=== PATIENT | female | born 1985 | race Caucasian/White ===

== ENCOUNTER 2021-01-16 08:14 | Outpatient (CLI) | payer OTHER, SELFPAY ==
--- NOTE | ~2021-01-16 | US_ITS ---
EXAMINATION: US venous doppler LE EXAM DATE: 01/16/2021 09:05 INDICATION: O22.30 - Deep phlebothrombosis in , unspecified ... Bruising of left leg. TECHNIQUE: Multiple grayscale, color flow and Doppler images of the lower extremity deep venous syste ms bilaterally were obtained and reviewed. There is no prior study for comparison. FINDINGS: Right side: The right common femoral, femoral and profunda veins demonstrate normal color flow, respi ratory variation, augmentation and compressibility. Compressibility, color flow confirmed within the right popliteal, posterior tibial, peroneal, and greater saphenous veins. Left side: The left common femoral, femoral and profunda veins demonstrate normal color flow, respira tory variation, augmentation and compressibility. Compressibility, color flow confirmed within the l eft popliteal, posterior tibial, peroneal, and greater saphenous veins. Scanning above knee left leg area of concern demonstrates a focal heterogeneous hypoechoic region wit hin subcutaneous fat measuring about 8 x 5 mm in size, differential diagnosis includes focal superfic ial thrombophlebitis, sebaceous cyst, hematoma seroma. No hypervascularity surrounding this or within . IMPRESSION: 1. No lower extremity deep venous thrombosis bilaterally. 2. Small focal left leg above knee subcutaneous region, could be superficial thrombophlebitis, sebac eous cyst, hematoma/seroma. Reviewed, dictated and finalized at location B. T FARMER IMPRESSION: 1. No lower extremity deep venous thrombosis bilaterally. 2. Small focal left leg above knee subcutaneous region, could be superficial t hrombophlebitis, sebaceous cyst, hematoma/seroma.
[2021-04-02 14:52] VITALS: BP 139/76; PULSE 117
== END 2021-01-16 08:15 | disposition home or self-care (01) ==
LOC: ANHIMG 08:16
PROVIDERS: PCP Obstetrics & Gynecology; Visit Provider Obstetrics & Gynecology
DX: O22.30 Deep phlebothrombosis in pregnancy, unspecified trimester (principal); Z3A.00 Weeks of gestation of pregnancy not specified
CPT/HCPCS: 93970

== ENCOUNTER 2021-03-14 08:00 | Outpatient (RCR) | payer OTHER, SELFPAY ==
[2021-03-14 08:00] VITALS: BMI 33.2
[2021-04-10 11:11] VITALS: BP 149/84; PULSE 101
[2021-04-10 11:16] VITALS: BP 148/78; PULSE 107
[2021-04-10 11:31] VITALS: BP 147/67; PULSE 105
[2021-04-10 12:19] VITALS: BP 144/60; PULSE 101
== END 2021-05-10 14:47 | disposition home or self-care (01) ==
LOC: ANHDMC 08:00
PROVIDERS: PCP Obstetrics & Gynecology; Visit Provider Obstetrics & Gynecology
DX: O24.419 Gestational diabetes mellitus in pregnancy, unspecified control (principal); Z3A.00 Weeks of gestation of pregnancy not specified; Z71.89 Other specified counseling; Z71.3 Dietary counseling and surveillance
CPT/HCPCS: 97802; G0108

== ENCOUNTER 2021-03-21 12:56 | Outpatient (CLI) | payer OTHER, SELFPAY ==
[2021-03-21] VITALS (11 sets, daily range): BP systolic 113–136; BP diastolic 38–68; PULSE 93–127; BMI 33.8
[2021-03-21 13:38] LABS: Glucose Point of Care 130 mg/dl (65-105)
[2021-03-21 13:42] LABS: Basophils Percent Auto 0.3 % (0.2-1.2); Eosinophils Absolute Auto 0.1 K/mm3 (0-0.3); Eosinophils Percent Auto 1.5 % (0-4.4); Hematocrit 31.9 % (37.0-47.0); Immature Granulocyte Absolute 0.08 K/mm3 (0.00-0.031); Immature Granulocyte Percent A 1.2 % (0-0.5); Lymphocytes Absolute Auto 1.56 K/mm3 (0.9-3.2); Lymphocytes Percent Auto 22.8 % (18.3-44.2); Mean Corpuscular HGB Conc 31.3 g/dl (32-36); Mean Corpuscular Volume 89.4 fl (80-100); Mean Platelet Volume 9.3 fl (7.4-10.4); Monocytes Absolute Auto 0.6 K/mm3 (0.1-0.6); Monocytes Percent Auto 9.1 % (2.6-8.5); Neutrophils Absolute Auto 4.5 K/mm3 (1.3-6.7); Neutrophils Percent Auto 65.1 % (45.5-73.1); Platelet Count Result 416 k/mm3 (150-375); Red Blood Count 3.57 M/mm3 (4.2-5.4); White Blood Count 6.8 K/mm3 (4.5-10.0)
[2021-03-21 13:56] LABS: Alanine Aminotransferase 13 U/L (4-35); Albumin Level 3.4 g/dL (3.5-5.1); Alkaline Phosphatase 106 U/L (38-126); Anion Gap 6 mmol/L (8-16); Aspartate Amino Transferase 18 U/L (14-36); Bilirubin,Total 0.2 mg/dL (0.2-1.3); Blood Urea Nitrogen 7 mg/dL (7-17); Calcium 8.9 mg/dL (8.4-10.2); Carbon Dioxide 22 mmol/L (22-30); Chloride 106 mmol/L (98-107); Estimated Glomerular Filt Rate > 60; Glucose 139 mg/dL (65-110); Potassium 3.7 mmol/L (3.4-5.0); Sodium 134 mmol/L (137-145); Uric Acid 3.8 mg/dL (2.5-7.5)
[2021-03-21 14:13] LABS: Add Urine Microscopic? YES; Appearance Urine Clear (Clear); Bilirubin Urine Negative (Negative); Blood Urine Negative (Negative); Color Urine Straw (Yellow); Glucose Urine UA Negative (Negative); Ketones Urine 1+ mg/dL (Negative); Leukocyte Esterase Ur Negative LEU/UL (Negative); Nitrate Urine Negative (Negative); Protein Urine Negative (Negative); RBC Urine 0-2 /hpf (0-2); Specific Grav Ur 1.005 (1.001-1.035); Squamous Epithelial Cell Urine Rare /hpf (Few); Urobilinogen Urine Negative mg/dL (<2.0); WBC Urine 0-3 /hpf
[2021-03-21 14:19] LABS: Creatinine Urine 34.8 mg/dL; Total Protein Urine Random 16 mg/dL; Ur Ttl Prot Creatinine Ratio 0.46 mg/mg (0-0.20)
== END 2021-03-21 15:20 | disposition home or self-care (01) ==
LOC: ANHOBOP 13:01 → ANHLDR 13:04
PROVIDERS: Visit Provider Obstetrics & Gynecology
DX: O13.9 Gestational [pregnancy-induced] hypertension without significant proteinuria, unspecified trimester (principal); Z3A.00 Weeks of gestation of pregnancy not specified
CPT/HCPCS: 36415; 59025; 80053; 81001; 82570; 82948; 84156; 84550; 85025; 99199

== ENCOUNTER 2021-03-22 16:45 | Outpatient (NON) | payer OTHER, SELFPAY ==
[2021-03-22 16:53] VITALS: BMI 34.3
[2021-03-22 18:47] LABS: Collection Time Urine 24 HOURS
[2021-03-22 18:56] LABS: Specific Gravity Ur 1.015
[2021-03-22 19:15] LABS: Patient Weight 212 Lbs
[2021-03-22 19:24] LABS: Creatinine Urine 59.1 mg/dL; Total Protein Urine Random 17 mg/dL
[2021-03-22 19:49] LABS: Creatinine Clearance Urine 208.5 ml/min (75-125); Total Protein Urine 24 Hr 510 mg/24hr (28-141); Total Volume 24 Hour Urine 3000 ml
== END 2021-03-22 16:46 | disposition home or self-care (01) ==
LOC: ANHOBOP 16:48
PROVIDERS: Visit Provider Obstetrics & Gynecology
DX: O13.9 Gestational [pregnancy-induced] hypertension without significant proteinuria, unspecified trimester (principal); Z3A.00 Weeks of gestation of pregnancy not specified
CPT/HCPCS: 81050; 82575; 84156

== ENCOUNTER 2021-04-02 14:34 | Outpatient (CLI) | payer OTHER, SELFPAY ==
--- NOTE | ~2021-04-02 | US_ITS ---
EXAMINATION: US OB limited EXAM DATE: 04/02/2021 15:44 INDICATION: REY . 3rd trimester. TECHNIQUE: Pelvic obstetrical transabdominal sonogram was performed by a technologist. There are mu ltiple grayscale and Doppler images available for interpretation. Comparison is made to prior examina tion from 03/29/2021. FINDINGS: There is a single fetus identified in vertex presentation with a heart rate of 132 beats pe r minute. The placenta is located in the anterior position. There is no sonographic evidence of retr oplacental hemorrhage identified. AMNIOTIC FLUID INDEX Quadrant 1: 1.9 cm Quadrant 2: 2.5 cm Quadrant 3: 2.6 cm Quadrant 4: 0.0 cm Amniotic fluid index: 7.0 cm. (The 5th -- 95th percentile range is 8.3-24.5). IMPRESSION: 1. Single fetus in vertex presentation with heart rate 132 beats per minute. 2. Oligohydramnios, REY 7.0 cm. Reviewed, dictated and finalized at location G. LOGY NURSE NAVIGATOR
[2021-04-02 15:08] LABS: Basophils Percent Auto 0.3 % (0.2-1.2); Eosinophils Percent Auto 0.5 % (0-4.4); Hematocrit 32.7 % (37.0-47.0); Hemoglobin 10.4 g/dL (12.0-15.0); Immature Granulocyte Absolute 0.08 K/mm3 (0.00-0.031); Lymphocytes Absolute Auto 1.57 K/mm3 (0.9-3.2); Lymphocytes Percent Auto 20.3 % (18.3-44.2); Mean Corpuscular HGB Conc 31.8 g/dl (32-36); Mean Corpuscular Hemoglobin 28.6 pg (26-34); Mean Corpuscular Volume 89.8 fl (80-100); Mean Platelet Volume 9.5 fl (7.4-10.4); Monocytes Absolute Auto 0.8 K/mm3 (0.1-0.6); Monocytes Percent Auto 9.7 % (2.6-8.5); Neutrophils Absolute Auto 5.3 K/mm3 (1.3-6.7); Neutrophils Percent Auto 68.2 % (45.5-73.1); Platelet Count Result 360 k/mm3 (150-375); Red Blood Count 3.64 M/mm3 (4.2-5.4); Red Cell Distribution Width 13.8 % (11.5-14.5); White Blood Count 7.8 K/mm3 (4.5-10.0)
[2021-04-02 15:17] LABS: Add Urine Microscopic? YES; Appearance Urine Clear (Clear); Bacteria Urine Trace /hpf; Bilirubin Urine Negative (Negative); Blood Urine Negative (Negative); Color Urine Yellow (Yellow); Glucose Urine UA Negative (Negative); Ketones Urine 1+ mg/dL (Negative); Leukocyte Esterase Ur Negative LEU/UL (NEGATIVE); Mucus Urine Rare /lpf; Nitrate Urine Negative (Negative); Protein Urine Negative (Negative); RBC Urine 0-2 /hpf (0-2); Specific Grav Ur 1.012 (1.001-1.035); Squamous Epithelial Cell Urine Few /hpf (Few); Urobilinogen Urine Negative mg/dL (<2.0); WBC Urine 0-3 /hpf (0-3)
[2021-04-02 15:21] LABS: Alanine Aminotransferase 15 U/L (4-35); Albumin Level 3.7 g/dL (3.5-5.1); Alkaline Phosphatase 132 U/L (38-126); Anion Gap 7 mmol/L (8-16); Aspartate Amino Transferase 21 U/L (14-36); Bilirubin,Total 0.3 mg/dL (0.2-1.3); Blood Urea Nitrogen 10 mg/dL (7-17); Calcium 8.8 mg/dL (8.4-10.2); Carbon Dioxide 20 mmol/L (22-30); Chloride 105 mmol/L (98-107); Estimated Glomerular Filt Rate > 60; Glucose 126 mg/dL (65-110); Potassium 3.5 mmol/L (3.4-5.0); Sodium 132 mmol/L (137-145); Uric Acid 3.4 mg/dL (2.5-7.5)
[2021-04-02 15:25] LABS: Creatinine Urine 51.6 mg/dL; Total Protein Urine Random 19 mg/dL; Ur Ttl Prot Creatinine Ratio 0.37 mg/mg (0-0.20)
--- NOTE | 2021-04-02 16:07 | PC.NURSE ---
1604- SPoke to Dr. peters, labs and BPs reviewed. orders to discharge to home with a 24 hour urine. Diabetic educatior coming to see patient before disharge.
[2021-04-02 16:08] VITALS: BP 139/76; PULSE 110
== END 2021-04-02 14:35 | disposition home or self-care (01) ==
LOC: ANHOBOP 14:41
PROVIDERS: Visit Provider Obstetrics & Gynecology
DX: O41.00X0 Oligohydramnios, unspecified trimester, not applicable or unspecified (principal); Z3A.00 Weeks of gestation of pregnancy not specified
CPT/HCPCS: 36415; 59025; 76815; 80053; 81001; 82570; 84156; 84550; 85025; 87086

== ENCOUNTER 2021-04-06 10:45 | Outpatient (CLI) | payer OTHER, SELFPAY ==
[2021-04-06 10:53] VITALS: BMI 33.7
[2021-04-06 11:29] LABS: Collection Time Urine 24 HOURS
[2021-04-06 11:38] LABS: Patient Weight 209 Lbs; Potassium 24 Hour Urine 18.7 mmol/24 (25-125)
[2021-04-06 11:59] LABS: Creatinine Clearance Urine 191.1 ml/min (75-125); Total Volume 24 Hour Urine 2750 ml
[2021-04-06 12:12] LABS: Specific Gravity Ur 1.013
[2021-04-06 12:14] LABS: Total Volume 24 Hour Urine 2750 ml
[2021-04-06 12:20] LABS: Total Protein Urine 24 Hr 357 mg/24hr (28-141); Total Protein Urine Random 13 mg/dL
== END 2021-04-06 10:46 | disposition home or self-care (01) ==
LOC: ANHOBOP 10:47
PROVIDERS: Visit Provider Obstetrics & Gynecology
DX: O16.3 Unspecified maternal hypertension, third trimester (principal); Z3A.33 33 weeks gestation of pregnancy
CPT/HCPCS: 59025; 76815; 81050; 82575; 84133; 84156

== ENCOUNTER 2021-04-14 11:25 | Outpatient (RCR) | payer OTHER, SELFPAY ==
[2021-04-13] MEDS: BETAMETHASONE SOD PHOS/ACETATE 30 MG/5 ML VIAL 12 MG IM (11:33)
[2021-04-14] MEDS: BETAMETHASONE SOD PHOS/ACETATE 30 MG/5 ML VIAL 12 MG IM (11:33)
== END 2021-07-08 08:49 | disposition home or self-care (01) ==
LOC: ANHOBOP 11:25
PROVIDERS: Visit Provider Obstetrics & Gynecology
DX: O36.8930 Maternal care for other specified fetal problems, third trimester, not applicable or unspecified (principal); Z3A.00 Weeks of gestation of pregnancy not specified
CPT/HCPCS: 96372; J0702

== ENCOUNTER 2021-04-26 12:38 | Outpatient (RCR) | payer OTHER, SELFPAY ==
[2021-03-29 11:22] VITALS: BP 135/60; PULSE 110
[2021-04-06 11:18] VITALS: BP 132/71
--- NOTE | 2021-04-06 11:59 | PC.NURSE ---
1138- SPoke with Dr. Arellano, reviewed BP's REY and NST. Orders to monitor for 1 hour.
[2021-04-06 12:54] VITALS: BP 130/50; PULSE 93
[2021-04-10 11:47] VITALS: BP 149/84; PULSE 87
--- NOTE | 2021-04-10 12:30 | PC.NURSE ---
REY 9.6. Pt sent home with precautions. Scheduled again for sat morning.
[2021-04-13 11:07] LABS: Basophils Percent Auto 0.3 % (0.2-1.2); Eosinophils Absolute Auto 0.1 K/mm3 (0-0.3); Eosinophils Percent Auto 1.8 % (0-4.4); Hematocrit 35.5 % (37.0-47.0); Hemoglobin 11.2 g/dL (12.0-15.0); Immature Granulocyte Absolute 0.06 K/mm3 (0.00-0.031); Immature Granulocyte Percent A 0.8 % (0-0.5); Lymphocytes Absolute Auto 1.63 K/mm3 (0.9-3.2); Mean Corpuscular HGB Conc 31.5 g/dl (32-36); Mean Corpuscular Hemoglobin 27.8 pg (26-34); Mean Corpuscular Volume 88.1 fl (80-100); Mean Platelet Volume 9.6 fl (7.4-10.4); Monocytes Absolute Auto 0.7 K/mm3 (0.1-0.6); Monocytes Percent Auto 9.3 % (2.6-8.5); Neutrophils Absolute Auto 4.9 K/mm3 (1.3-6.7); Neutrophils Percent Auto 65.8 % (45.5-73.1); Platelet Count Result 446 k/mm3 (150-375); Red Blood Count 4.03 M/mm3 (4.2-5.4); Red Cell Distribution Width 13.6 % (11.5-14.5); White Blood Count 7.4 K/mm3 (4.5-10.0)
[2021-04-13 11:14] LABS: Total Protein Urine Random 10 mg/dL
[2021-04-13 11:16] LABS: Creatinine Urine 55.9 mg/dL; Ur Ttl Prot Creatinine Ratio 0.18 mg/mg (0-0.20)
[2021-04-13 11:18] LABS: Alanine Aminotransferase 16 U/L (4-35); Albumin Level 3.4 g/dL (3.5-5.1); Alkaline Phosphatase 133 U/L (38-126); Anion Gap 5 mmol/L (8-16); Aspartate Amino Transferase 20 U/L (14-36); Bilirubin,Total 0.2 mg/dL (0.2-1.3); Blood Urea Nitrogen 11 mg/dL (7-17); Calcium 8.9 mg/dL (8.4-10.2); Carbon Dioxide 19 mmol/L (22-30); Chloride 109 mmol/L (98-107); Estimated Glomerular Filt Rate > 60; Glucose 130 mg/dL (65-110); Potassium 3.6 mmol/L (3.4-5.0); Sodium 133 mmol/L (137-145); Uric Acid 3.8 mg/dL (2.5-7.5)
[2021-04-13 12:07] VITALS: BP 121/74; PULSE 96
[2021-04-17 11:40] VITALS: BP 132/69; PULSE 94
[2021-04-20 10:55] LABS: Basophils Percent Auto 0.3 % (0.2-1.2); Eosinophils Absolute Auto 0.2 K/mm3 (0-0.3); Eosinophils Percent Auto 2.2 % (0-4.4); Hematocrit 35.1 % (37.0-47.0); Immature Granulocyte Absolute 0.07 K/mm3 (0.00-0.031); Immature Granulocyte Percent A 0.9 % (0-0.5); Lymphocytes Absolute Auto 1.59 K/mm3 (0.9-3.2); Lymphocytes Percent Auto 20.7 % (18.3-44.2); Mean Corpuscular HGB Conc 31.3 g/dl (32-36); Mean Corpuscular Hemoglobin 27.8 pg (26-34); Mean Corpuscular Volume 88.6 fl (80-100); Mean Platelet Volume 9.9 fl (7.4-10.4); Monocytes Absolute Auto 0.7 K/mm3 (0.1-0.6); Monocytes Percent Auto 9.1 % (2.6-8.5); Neutrophils Absolute Auto 5.1 K/mm3 (1.3-6.7); Neutrophils Percent Auto 66.8 % (45.5-73.1); Platelet Count Result 391 k/mm3 (150-375); Red Blood Count 3.96 M/mm3 (4.2-5.4); Red Cell Distribution Width 13.7 % (11.5-14.5); White Blood Count 7.7 K/mm3 (4.5-10.0)
[2021-04-20 11:06] LABS: Alanine Aminotransferase 17 U/L (4-35); Albumin Level 3.4 g/dL (3.5-5.1); Alkaline Phosphatase 126 U/L (38-126); Anion Gap 5 mmol/L (8-16); Aspartate Amino Transferase 20 U/L (14-36); Bilirubin,Total 0.2 mg/dL (0.2-1.3); Blood Urea Nitrogen 12 mg/dL (7-17); Calcium 9.1 mg/dL (8.4-10.2); Carbon Dioxide 21 mmol/L (22-30); Chloride 107 mmol/L (98-107); Estimated Glomerular Filt Rate > 60; Glucose 108 mg/dL (65-110); Potassium 3.8 mmol/L (3.4-5.0); Sodium 133 mmol/L (137-145); Uric Acid 3.5 mg/dL (2.5-7.5)
[2021-04-20 11:43] VITALS: BP 131/64; PULSE 98
[2021-04-23 11:30] VITALS: BP 130/74; PULSE 91
--- NOTE | ~2021-04-26 | US_ITS ---
EXAMINATION: US OB limited DATE: 04/17/2021 11:42 INDICATION: Gestational diabetes and preeclampsia during third trimester TECHNIQUE: Real-time ultrasound of the pelvis was performed. The interpreting radiologist was not pre sent for the study. COMPARISON: 04/13/2021 FINDINGS: There is a single living fetus in vertex presentation. The placenta is anterior. card iac activity and movement are noted. heart rate is 138 beats per minute (bpm). The amniot ic fluid index is 8.5 cm which is normal (normal range: 7.9 cm to 24.9 cm) . IMPRESSION: 1. Single living fetus in vertex presentation. 2. Normal amniotic fluid index. Reviewed, dictated and finalized at location A. AND SALARY ADMINISTRATOR
--- NOTE | ~2021-04-26 | US_ITS ---
US OB limited 04/06/2021 11:28 Indication: Essential diabetes and hypertension. Oligohydramnios. Procedure: High-resolution Limited obstetrical ultrasound Comparison: Ultrasound dated 04/02/2021 Findings: There is a single living intrauterine in vertex presentation. heart rate is 148 BPM. Placenta is anterior without previa. Amniotic fluid index is normal measuring 10.3 cm. Impression: 1: Single living intrauterine in vertex presentation. 2: Normal REY measures 10.3 cm. Reviewed, dictated and finalized at location A. ON AND TIME STUDY TEACHER Impression: 1: Single living intrauterine in vertex presentation. 2: Normal REY measures 10.3 cm.
--- NOTE | ~2021-04-26 | US_ITS ---
EXAMINATION: US OB limited DATE: 04/10/2021 12:02 INDICATION: Gestational hypertension and diabetes. TECHNIQUE: Real-time ultrasound of the pelvis was performed. The interpreting radiologist was not pre sent for the study. COMPARISON: None. FINDINGS: There is a single living fetus in vertex presentation. The placenta is anterior. heart rate is 142 beats per minute (bpm). The amniotic fluid index is 9.6 cm, which is normal (5th%-95%: 8.1-24.8 cm at 34 weeks estimated gestational age). IMPRESSION: 1. Single living fetus in vertex presentation with heart rate of 142 bpm. 2. Normal amniotic fluid index of 9.6 cm. Reviewed, dictated and finalized at location A. ISSARY ASSISTANT IMPRESSION: 1. Single living fetus in vertex presentation with heart rate of 142 bpm . 2. Normal amniotic fluid index of 9.6 cm.
--- NOTE | ~2021-04-26 | US_ITS ---
EXAMINATION: US OB limited DATE: 04/20/2021 11:10 INDICATION: -induced hypertension during third trimester TECHNIQUE: Real-time ultrasound of the pelvis was performed. The interpreting radiologist was not pre sent for the study. COMPARISON: None. FINDINGS: There is a single living fetus in vertex presentation. The placenta is anterior. heart rate is 142 beats per minute (bpm). The amniotic fluid index is 8.3 cm, which is normal (5th%-95%: 7.9-24.9 cm at 35 weeks estimated gestational age). IMPRESSION: 1. Single living fetus in vertex presentation with heart rate of 142 bpm. 2. Normal amniotic fluid index of 8.3 cm. Reviewed, dictated and finalized at location A. TECH IMPRESSION: 1. Single living fetus in vertex presentation with heart rate of 142 bpm . 2. Normal amniotic fluid index of 8.3 cm.
--- NOTE | ~2021-04-26 | US_ITS ---
EXAMINATION: US OB limited w BPP DATE: 04/26/2021 13:39 INDICATION: Maternal gestational diabetes and preeclampsia TECHNIQUE: Real-time pelvic ultrasound was performed. The interpreting radiologist was not present fo r the study. COMPARISON: None. FINDINGS: There is a single living fetus in vertex presentation. The placenta is anterior. heart rate is 123 beats per minute (bpm). Normal amniotic fluid index of 11.3 cm (5th%-95%: 7.7-24.9 cm at 36 week s estimated gestational age) Biophysical profile performed by the technologist: breathing (30 sec sustained breathing in 30 minutes): 2 out of 2 movement (3 gross body movements in 30 minutes): 2 out of 2 tone (one episode of vaupykm-xaxgiydom-pevvdpo limb movement): 2 out of 2 Amniotic fluid pocket (2 cm): 2 out of 2 Total score: 8 out of 8 IMPRESSION: 1. Single living fetus in vertex presentation with heart rate of 123 bpm. 2. Biophysical profile 8 out of 8. 3. Normal amniotic fluid index of 11.3 cm. Reviewed, dictated and finalized at location A. T SPRAY INSPECTOR
--- NOTE | ~2021-04-26 | US_ITS ---
EXAMINATION: US OB follow up w BPP DATE: 04/23/2021 11:02 INDICATION: Evaluate amniotic fluid index, estimated weight and biophysical profile TECHNIQUE: Real-time ultrasound of the pelvis was performed. The interpreting radiologist was not pre sent for the study. COMPARISON: Comparison to multiple prior studies sequentially, with oldest reviewed study dated 06/2021. . FINDINGS: There is a single living fetus in vertex presentation. The placenta is anterior. cardiac activ ity and movement are noted. heart rate is 154 beats per minute (bpm). The amniotic fluid index is 8.5 cm, which is within normal range (7.7-24.9 cm).. The following biometric data were obtained: BPD: 91 cm corresponds to gestational age 37 weeks 0 day(s). Head circumference: 327 cm corresponds to gestational age 37 weeks 1 day(s). Abdominal circumference: 338 cm corresponds to gestational age 37 weeks 5 day(s). Femur length: 70 cm corresponds to gestational age 36 weeks 0 day(s). Head circumference to abdominal circumference ratio: 0.97, within normal limits. Estimated weight: 3131 g plus or minus 470 g, 78.6 percentile. Biophysical profile performed by the technologist: breathing (30 sec sustained breathing in 30 minutes): 2 out of 2 movement (3 gross body movements in 30 minutes: 2 out of 2 tone (one episode of obgvbxd-dztnkdkjw-pmrraln limb movement): 2 out of 2 Amniotic fluid pocket (2 cm): 2 out of 2 Total score: 8 out of 8 IMPRESSION: 1. Single living fetus in vertex presentation with heart rate of 154 bpm. 2. Normal placenta. 3. Biophysical profile 8 out of 8. 4. Gestational age by ultrasound of 37 weeks 0 day(s) with ultrasound estimated date of delivery (TALON ) of 05/14/2021. Please correlate with clinical information or other ultrasounds for most accurate TALON . Reviewed, dictated and finalized at location B. MARKER IMPRESSION: 1. Single living fetus in vertex presentation with heart rate of 154 bpm. 2. Normal placenta. 3. Biophysical profile 8 out of 8. 4. Gestational age by ultrasound of 37 weeks 0 day(s) with ultrasound estimated date of delivery (TALON) of 05/14/2021. Please correlate with clinical informatio n or other ultrasounds for most accurate TALON.
--- NOTE | ~2021-04-26 | US_ITS ---
EXAMINATION: US OB limited EXAM DATE: 03/29/2021 11:14 INDICATION: REY GDM. 3rd trimester. TECHNIQUE: Pelvic obstetrical transabdominal sonogram was performed by a technologist. There are mu ltiple grayscale and Doppler images available for interpretation. There are no earlier studies of th is gestation for comparison. FINDINGS: There is a single fetus identified in vertex presentation with a heart rate of 148 beats pe r minute. The placenta is located in the anterior position. There is no sonographic evidence of retr oplacental hemorrhage identified. The amniotic fluid index is 10.5 centimeters, which is normal. IMPRESSION: 1. Single fetus in vertex presentation with heart rate 148 beats per minute. 2. Normal REY 10.5 cm. Reviewed, dictated and finalized at location A. IANCE SALES ASSOCIATE
--- NOTE | ~2021-04-26 | US_ITS ---
EXAMINATION: US OB limited DATE: 04/13/2021 11:54 INDICATION: Gestational diabetes and preeclampsia during third trimester TECHNIQUE: Real-time ultrasound of the pelvis was performed. The interpreting radiologist was not pre sent for the study. COMPARISON: 04/10/2021 FINDINGS: There is a single living fetus in vertex presentation. The placenta is anterior. card iac activity and movement are noted. heart rate is 130 beats per minute (bpm). The amniot ic fluid index is 7.5 cm which is low (normal range: 8.1 cm to 24.8 cm) . IMPRESSION: 1. Single living fetus in vertex presentation. 2. Oligohydramnios. Reviewed, dictated and finalized at location A. FLOORPERSON
[2021-04-26 13:42] VITALS: BP 128/59; PULSE 72
== END 2021-06-27 23:59 | disposition home or self-care (01) ==
LOC: ANHOBOP 12:38
PROVIDERS: Visit Provider Obstetrics & Gynecology
DX: O24.419 Gestational diabetes mellitus in pregnancy, unspecified control (principal); Z3A.32 32 weeks gestation of pregnancy; R03.0 Elevated blood-pressure reading, without diagnosis of hypertension; Z3A.33 33 weeks gestation of pregnancy; O41.03X0 Oligohydramnios, third trimester, not applicable or unspecified; O14.93 Unspecified pre-eclampsia, third trimester; Z3A.34 34 weeks gestation of pregnancy; Z3A.35 35 weeks gestation of pregnancy; Z3A.36 36 weeks gestation of pregnancy
CPT/HCPCS: 36415; 59025; 76815; 76816; 76819; 80053; 82570; 84156; 84550; 85025; 96372; J0702

== ENCOUNTER 2021-04-30 05:10 | Inpatient (IN) | payer OTHER, SELFPAY ==
[2021-04-30] VITALS (104 sets, daily range): BP systolic 101–180; BP diastolic 45–113; PULSE 65–104; RESP 16; TEMP 36.7–37.7; O2SAT 99–100
[2021-04-30 06:09] LABS: Basophils Percent Auto 0.3 % (0.2-1.2); Eosinophils Absolute Auto 0.2 K/mm3 (0-0.3); Eosinophils Percent Auto 3.5 % (0-4.4); Hematocrit 36.2 % (37.0-47.0); Hemoglobin 11.4 g/dL (12.0-15.0); Immature Granulocyte Absolute 0.04 K/mm3 (0.00-0.031); Immature Granulocyte Percent A 0.6 % (0-0.5); Lymphocytes Absolute Auto 2.05 K/mm3 (0.9-3.2); Lymphocytes Percent Auto 32.6 % (18.3-44.2); Mean Corpuscular HGB Conc 31.5 g/dl (32-36); Mean Corpuscular Hemoglobin 27.8 pg (26-34); Mean Corpuscular Volume 88.3 fl (80-100); Mean Platelet Volume 10.1 fl (7.4-10.4); Monocytes Absolute Auto 0.6 K/mm3 (0.1-0.6); Monocytes Percent Auto 9.6 % (2.6-8.5); Neutrophils Absolute Auto 3.4 K/mm3 (1.3-6.7); Neutrophils Percent Auto 53.4 % (45.5-73.1); Platelet Count Result 366 k/mm3 (150-375); White Blood Count 6.3 K/mm3 (4.5-10.0)
[2021-04-30] MEDS: LACTATED RINGERS 1,000 ML 125 ML IV CONT ×2 (06:11→13:15)
[2021-04-30] MEDS: AMPICILLIN 2 GM/NS 100 ML 2 GM/100 ML BAG IVPB (06:11)
[2021-04-30 06:17] LABS: Alanine Aminotransferase 13 U/L (4-35); Albumin Level 3.5 g/dL (3.5-5.1); Alkaline Phosphatase 147 U/L (38-126); Anion Gap 8 mmol/L (8-16); Aspartate Amino Transferase 19 U/L (14-36); Bilirubin,Total 0.2 mg/dL (0.2-1.3); Blood Urea Nitrogen 13 mg/dL (7-17); Calcium 8.8 mg/dL (8.4-10.2); Carbon Dioxide 20 mmol/L (22-30); Chloride 108 mmol/L (98-107); Estimated Glomerular Filt Rate > 60; Glucose 116 mg/dL (65-110); Potassium 3.8 mmol/L (3.4-5.0); Sodium 136 mmol/L (137-145)
[2021-04-30 06:24] LABS: Uric Acid 4.4 mg/dL (2.5-7.5)
[2021-04-30] MEDS: OXYTOCIN 30 UNITS/NS 500 ML 30 UNITS/500 ML BAG IV CONT (06:44)
--- NOTE | 2021-04-30 08:47 | WPDANESEPP ---
Anes - Eval Pre Procedure Procedure: labor epidural Date/Time: 04/30/21 08:47 Preop Diagnosis: labor pain Pre Op Diagnosis: IOL Patient Data Age: 35 Gender: F Height: Weight: Last Vital Signs Pulse 78 04/30/21 08:46 BP 117/70 04/30/21 08:46 Allergies Allergy/AdvReac Type Severity Reaction Status Date / Time No Known Allergies Allergy Verified 04/23/21 08:37 Home Medications Medication Instructions Recorded Confirmed Type prenat.vits,letitia,crr-tbgk-giwcp 1 tablet PO DAILY 09/26/20 04/30/21 History ferrous sulfate 325 mg PO DAILY 03/21/21 04/30/21 History insulin syringes (disposable) 1 mL #500 ea 04/05/21 04/25/21 Rx insulin NPH isoph U-100 human 10 unit SUBCUT QHS 04/13/21 04/30/21 History [Novolin N NPH U-100 Insulin] Laboratory Tests 04/30/21 04/30/21 04/30/21 05:51 05:51 05:51 WBC 6.3 K/mm3 K/mm3 (4.5-10.0) RBC 4.10 M/mm3 L M/mm3 (4.2-5.4) Hgb 11.4 g/dL L g/dL (12.0-15.0) Hct 36.2 % L % (37.0-47.0) MCV 88.3 fl fl (80-100) MCH 27.8 pg pg (26-34) MCHC 31.5 g/dl L g/dl (32-36) RDW 14.0 % % (11.5-14.5) Plt Count 366 k/mm3 k/mm3 (150-375) MPV 10.1 fl fl (7.4-10.4) Immature Gran % (Auto) 0.6 % H % (0-0.5) Neut % (Auto) 53.4 % % (45.5-73.1) Lymph % (Auto) 32.6 % % (18.3-44.2) [place] % (Auto) 9.6 % H % (2.6-8.5) Eos % (Auto) 3.5 % % (0-4.4) Baso % (Auto) 0.3 % % (0.2-1.2) Lymph # (Auto) 2.05 K/mm3 K/mm3 (0.9-3.2) [place] # (Auto) 0.6 K/mm3 K/mm3 (0.1-0.6) Eos # (Auto) 0.2 K/mm3 K/mm3 (0-0.3) Baso # (Auto) 0.0 K/mm3 K/mm3 (0.0-0.1) Abs Immat Gran (auto) 0.04 K/mm3 H K/mm3 (0.00-0.031) Absolute Neuts (auto) 3.4 K/mm3 K/mm3 (1.3-6.7) Absolute Nucleated RBC 0.0 K/mm3 K/mm3 (0.0-0.012) Nucleated RBC % 0.0 % % (0.0-0.2) Sodium Potassium Chloride Carbon Dioxide Anion Gap BUN Creatinine Estim Creat Clear Calc Estimated GFR Glucose Uric Acid Calcium Total Bilirubin AST ALT Alkaline Phosphatase Total Protein Albumin RPR Pending Blood Type O Positive Antibody Screen Negative 04/30/21 04/30/21 05:51 05:51 WBC RBC Hgb Hct MCV MCH MCHC RDW Plt Count MPV Immature Gran % (Auto) Neut % (Auto) Lymph % (Auto) [place] % (Auto) Eos % (Auto) Baso % (Auto) Lymph # (Auto) [place] # (Auto) Eos # (Auto) Baso # (Auto) Abs Immat Gran (auto) Absolute Neuts (auto) Absolute Nucleated RBC Nucleated RBC % Sodium 136 mmol/L L mmol/L (137-145) Potassium 3.8 mmol/L mmol/L (3.4-5.0) Chloride 108 mmol/L H mmol/L (98-107) Carbon Dioxide 20 mmol/L L mmol/L (22-30) Anion Gap 8 mmol/L mmol/L (8-16) BUN 13 mg/dL mg/dL (7-17) Creatinine 0.50 mg/dL L mg/dL (0.7-1.0) Estim Creat Clear Calc Not Reportable Estimated GFR > 60 (59 - ) Glucose 116 mg/dL H mg/dL (65-110) Uric Acid 4.4 mg/dL mg/dL Cancelled (2.5-7.5) Calcium 8.8 mg/dL mg/dL (8.4-10.2) Total Bilirubin 0.2 mg/dL mg/dL (0.2-1.3) AST 19 U/L U/L (14-36) ALT 13 U/L U/L (4-35) Alkaline Phosphatase 147 U/L H U/L (38-126) Total Protein 7.0 g/dL g/dL (6.3-8.2) Albumin 3.5 g/dL g/dL (3.5-5.1) RPR Blood Type Antibody Screen Patient hx anesthe
[2021-04-30] MEDS: AMPICILLIN 1 GM/NS 50 ML 1 GM/50 ML BAG IVPB ×2 (09:55→13:49)
[2021-04-30 10:06] LABS: Glucose Point of Care 110 mg/dl (65-105)
[2021-04-30 12:01] LABS: Glucose Point of Care 87 mg/dl (65-105)
[2021-04-30 14:10] LABS: Glucose Point of Care 81 mg/dl (65-105)
[2021-04-30 16:22] LABS: Glucose Point of Care 76 mg/dl (65-105)
--- NOTE | 2021-04-30 16:34 | PM.IMHP ---
H&P: HPI History of Present Illness Date/Time: 04/30/21 16:34 She is here for [facility] for pre-eclampsia. She has been recommended for [facility] and discussed risk of prolonging and risk benefit of induction.Patient at 37 weeks by LMP 08/13/20 EDC 05/20/21 consistent with first trimester ultrasound. PNC significant for mild pre-eclampsia since approximately 33 weeks, no signs or symptoms of severe disease. She has been getting surveillance which has been reassuring. PNC also significant for insulin requiring gestational diabetes control on 10u NPH evening. labs reviewed. Pos GBS. Chief Complaint: Induction of labor. Review of Systems Review of Systems: All systems reviewed & are unremarkable except as noted in HPI and below Constitutional: Constitutional: Reports no additional constitutional complaints and Denies headache(s) Eyes: Eyes: Denies spots in vision ENT: Reports system reviewed and no additional complaints, except as documented and Denies headache(s) Cardiovascular: Cardiovascular: Denies chest pain and Denies dyspnea Respiratory: Respiratory: Denies dyspnea Gastrointestinal: Gastrointestinal: Reports no additional gastrointestinal complaints Genitourinary: Genitourinary: Reports amenorrhea Musculoskeletal: Musculoskeletal: Reports no additional musculoskeletal complaints Integumentary/Breasts: Skin/Breast: Denies breast mass and Denies rash Neurologic: Denies headache(s) Psychiatric: Psychiatric: Reports no additional psychiatric complaints [facility] Past Medical History Medical History Vaginal delivery Family History Family History Grandparent Carcinoma of colon Social History Social History Smoking status: Never smoker Smokeless tobacco user: chewing tobacco Second hand tobacco smoke exposure: No Alcohol intake: never Substance use: never Spiritual care concerns: No Meds Home Medications and Allergies Home Medications Medication Instructions Recorded Confirmed Type prenat.vits,letitia,tcw-bwnb-dswjw 1 tablet PO DAILY 09/26/20 04/30/21 History ferrous sulfate 325 mg PO DAILY 03/21/21 04/30/21 History insulin syringes (disposable) 1 mL #500 ea 04/05/21 04/25/21 Rx insulin NPH isoph U-100 human 10 unit SUBCUT QHS 04/13/21 04/30/21 History [Novolin N NPH U-100 Insulin] Allergies Allergy/AdvReac Type Severity Reaction Status Date / Time No Known Allergies Allergy Verified 04/23/21 08:37 Vital Signs Vital Signs - 24 hr 04/30/21 05:56 04/30/21 06:00 04/30/21 06:16 Temperature Pulse Rate 91 87 86 Blood Pressure 119/70 121/61 126/60 Pulse Oximetry 04/30/21 06:31 04/30/21 06:46 04/30/21 07:01 Temperature Pulse Rate 82 86 90 Blood Pressure 119/53 L 124/65 124/70 Pulse Oximetry 04/30/21 07:16 04/30/21 07:31 04/30/21 07:46 Temperature Pulse Rate 71 72 88 Blood Pressure 125/52 L 126/63 126/60 Pulse Oximetry 04/30/21 08:01 04/30/21 08:16 04/30/21 08:31 Temperature Pulse Rate 70 73 77 Blood Pressure 122/64 124/59 L 117/58 L Pulse Oximetry 04/30/21 08:46 04/30/21 09:01 04/30/21 09:16 Temperature Pulse Rate 78 79 70 Blood Pressure 117/70 122/60 114/60 Pulse Oximetry 04/30/21 09:31 04/30/21 09:46 04/30/21 10:01 Temperature Pulse Rate 72 82 82 Blood Pressure 119/64 119/50 L 118/68 Pulse Oximetry 04/30/21 10:16 04/30/21 10:31 04/30/21 10:46 Temperature Pulse Rate 79 76 71 Blood Pressure 117/55 L 116/62 120/56 L Pulse Oximetry 04/30/21 11:01 04/30/21 11:16 04/30/21 11:30 Temperature Pulse Rate 74 81 87 Blood Pressure 117/53 L 109/57 L 110/64 Pulse Oximetry 04/30/21 11:46 04/30/21 12:01 04/30/21 12:16 Temperature Pulse Rate 76 83 78 Blood Pressure 121/56 L 129/74 121/63 Pulse Oximetry
[2021-04-30] MEDS: OXYTOCIN 30 UNITS/NS 500 ML 30 UNITS/500 ML BAG 125 UNITS IV CONT (17:08)
--- NOTE | 2021-04-30 17:30 | PM.OBPRVD ---
OB - Delivery Note Procedure Delivery date: 04/30/21 Procedure: Spontaneous vaginal delivery Events: Gestational Diabetes, Positive Group B Strep (GBS) and Preeclampsia w/o severe features Induction method: Per Pitocin Protocol Delivery augmentation: Rupture of Membranes Delivery monitor: External FHT Route of delivery: Laceration Description: Perineal - 2nd Degree Delivery repair: vicryl (3.0 vicryl) Specimen: Yes (Placenta and cord) Quantitative Blood Loss (ml): 150 Anesthesia type: Epidural Disposition: floor Complications: None Narrative: Patient admitted for [facility] for mild pre eclampsia. No severe symptoms. Labs normal today. Patient also has gestational diabetes insulin requiring control with pm NPH. Her blood sugars have been normal throughout labor. She had AROM at 1243 blood tinged. Cervix exam at that time /2. She progressed to active labor. She progressed to complete. She pushed for 3-4 contractions and delivered a female . 's mouth and nose suctioned at perineum. The infant shoulders were delivered with gentle traction. The was placed on maternal abdomen vigorously crying. Terminal meconium noted. Delayed cord clamping for 45 sec until cord apulsatile and then cord doubly clamped and cut. Perineal laceration repaired with 3.0 vicryl in interrupted layers. Baby Date of : 04/30/21 Time of : 16:38 Weeks of gestation at delivery: 37 gender: Female Weight (pounds): 8 Weight (ounces): 4 presentation: vertex position: Right Occiput Anterior Placenta delivery description: Spontaneous and Other (Bilobed placenta) score one minute: 8 score five minutes: 9 AMG Delivery Billing Delivery Delivery: Delivery Charge
--- NOTE | 2021-04-30 17:38 | PM.OBPNVD ---
OB - PN: Subj Subjective Date/time seen: 04/30/21 17:38 AROM 1243 blood tinged, cervix /50/-2 Cat 1 tracing. Continue pitocin. OB - PN: Obj Data Labs CBC & Chem 7: 04/30/21 05:51 04/30/21 05:51 Labs: Laboratory Results - last 24 hr 04/30/21 04/30/21 04/30/21 05:51 05:51 05:51 WBC 6.3 RBC 4.10 L Hgb 11.4 L Hct 36.2 L MCV 88.3 MCH 27.8 MCHC 31.5 L RDW 14.0 Plt Count 366 MPV 10.1 Immature Gran % (Auto) 0.6 H Neut % (Auto) 53.4 Lymph % (Auto) 32.6 [place] % (Auto) 9.6 H Eos % (Auto) 3.5 Baso % (Auto) 0.3 Lymph # (Auto) 2.05 [place] # (Auto) 0.6 Eos # (Auto) 0.2 Baso # (Auto) 0.0 Abs Immat Gran (auto) 0.04 H Absolute Neuts (auto) 3.4 Absolute Nucleated RBC 0.0 Nucleated RBC % 0.0 Sodium 136 L Potassium 3.8 Chloride 108 H Carbon Dioxide 20 L Anion Gap 8 BUN 13 Creatinine 0.50 L Estim Creat Clear Calc Not Reportable Estimated GFR > 60 Glucose 116 H POC Capillary Glucose Uric Acid 4.4 Calcium 8.8 Total Bilirubin 0.2 AST 19 ALT 13 Alkaline Phosphatase 147 H Total Protein 7.0 Albumin 3.5 Blood Type O Positive Antibody Screen Negative 04/30/21 04/30/21 04/30/21 05:51 10:00 11:56 WBC RBC Hgb Hct MCV MCH MCHC RDW Plt Count MPV Immature Gran % (Auto) Neut % (Auto) Lymph % (Auto) [place] % (Auto) Eos % (Auto) Baso % (Auto) Lymph # (Auto) [place] # (Auto) Eos # (Auto) Baso # (Auto) Abs Immat Gran (auto) Absolute Neuts (auto) Absolute Nucleated RBC Nucleated RBC % Sodium Potassium Chloride Carbon Dioxide Anion Gap BUN Creatinine Estim Creat Clear Calc Estimated GFR Glucose POC Capillary Glucose 110 H 87 Uric Acid Cancelled Calcium Total Bilirubin AST ALT Alkaline Phosphatase Total Protein Albumin Blood Type Antibody Screen 04/30/21 04/30/21 14:08 16:09 WBC RBC Hgb Hct MCV MCH MCHC RDW Plt Count MPV Immature Gran % (Auto) Neut % (Auto) Lymph % (Auto) [place] % (Auto) Eos % (Auto) Baso % (Auto) Lymph # (Auto) [place] # (Auto) Eos # (Auto) Baso # (Auto) Abs Immat Gran (auto) Absolute Neuts (auto) Absolute Nucleated RBC Nucleated RBC % Sodium Potassium Chloride Carbon Dioxide Anion Gap BUN Creatinine Estim Creat Clear Calc Estimated GFR Glucose POC Capillary Glucose 81 76 Uric Acid Calcium Total Bilirubin AST ALT Alkaline Phosphatase Total Protein Albumin Blood Type Antibody Screen OB - PN A/P Time Spent With Patient Time: Total time spent is greater than 50% in coordination of care (as documented) at patient's floor/unit and/or counseling patient:
[2021-05-01 00:20] VITALS: BP 124/71; PULSE 88; RESP 16; TEMP 36.6
[2021-05-01 03:20] VITALS: BP 122/63; PULSE 75; RESP 16; TEMP 36.6
[2021-05-01 05:05] LABS: Hematocrit 33.7 % (37.0-47.0); Hemoglobin 10.7 g/dL (12.0-15.0)
[2021-05-01 07:15] VITALS: BP 112/64; PULSE 84; RESP 18; TEMP 36.8; O2SAT 98
[2021-05-01 07:18] LABS: Glucose Point of Care 94 mg/dl (65-105)
--- NOTE | 2021-05-01 09:11 | PC.NURSE ---
On 05/01/21, the student, Laura Allen, provided care and completed [facility] documentation on this patient. I have reviewed the student's documentation and agree with the findings.
[2021-05-01 09:25] LABS: Rapid Plasma Reagin Non-Reactive (NonReactive)
[2021-05-01] MEDS: DOCUSATE SODIUM 100 MG CAPSULE PO (09:46)
[2021-05-01] MEDS: MULTIVIT/MIN/PREN/FOL AC/IRON TABLET 1 TAB PO (09:46)
[2021-05-01] MEDS: IBUPROFEN 600 MG TABLET PO (10:53)
[2021-05-01 11:43] VITALS: BP 117/52; PULSE 70; RESP 16; TEMP 36.4; O2SAT 100
--- NOTE | 2021-05-01 12:47 | PC.NURSE ---
[id number] Introduction were made. Consulted with patient to assess needs related to . Mother led conversation with her experience with feeding baby so far. Mother works well with her infant and primary RN is assisting with . Reviewed good handwashing when working with , breast, nipples and how to protect the nipples with a deep latch. Encouraged understanding the benefits of skin to skin, responding to feeding cues and feeding on demand, frequencies of feeding 8-12 times in 24 hours (approximately 2-3 hours), duration of feedings, milk production, intake/output feeding sheet and signs of adequate intake. Discussed stimulating with skin to skin, hand expressing colostrum, touch and talking to to encourage eating at the breast. Reviewed positioning and alignment, supporting breast, off-centered (asymmetrical latch) and leading with the chin with big open wide gape. Infant latched optimally to the right breast in football position with no pain to mother until mother pulled off without adequately detaching infant from the breast but nipple appears to not be misshaped, however there is a 1 mm red spot on the tip of the nipple. Reviewed detaching from the breast. Education given to mother of how to visualize suck/swallow ratios and drinking at the breast. Reviewed latching with mother as she attempts baby to the left breast using football position. was able to maintain latch without discomfort to mother. Nipple care, comfort and healing with warm, wet washcloth to rinse breast and leave to air-dry. Colostrum may be left on nipples to dry but have clean hands when touching the nipple/breast. Resources used to facilitate learning were used from the visual handout/ tool/mom and baby guide. Mother voiced understanding responding to feeding cues for feeding on demand, may need to stimulating infant approximately 2-3 hours from the start of the last feeding, calling for assistance if the infant does not latch or there discomfort . Reported to primary RN.
[2021-05-01 18:45] VITALS: BP 133/64; PULSE 86; RESP 18; TEMP 36.9
[2021-05-02 07:20] VITALS: BP 125/68; PULSE 76; RESP 16; TEMP 36.6; O2SAT 100
--- NOTE | 2021-05-02 08:00 | PC.NURSE ---
Patient viewed the discharge video Mother & Baby Care, The First Two Weeks . Patient was given the opportunity and encouraged to ask questions. Patient verbalized understanding of information shared and has been given the mother/baby guide for home reference.
--- NOTE | 2021-05-02 08:49 | PM.OBPNVD ---
OB - PN: Subj Subjective Date/time seen: 05/01/21 08:20 Patient comments: pain well controlled, tolerating diet and other (Decreasing lochia.) baby status: doing well and nursing well [place] feeding status: exclusively breast feeding OB - PN: Obj Data Labs CBC & Chem 7: 05/01/21 03:24 04/30/21 05:51 Labs: Laboratory Results - last 24 hr 04/30/21 05:51 RPR Non-reactive OB - PN A/P Plan day: 1 Plan: routine care Comments: Patient doing well. Routine care. Time Spent With Patient Time: Total time spent is greater than 50% in coordination of care (as documented) at patient's floor/unit and/or counseling patient: Exam Psych: Affect: normal affect Other: Abd: fundus firm below umbilicus, nontender Perineum: healing Ext: nontender
--- NOTE | 2021-05-02 08:50 | PM.OBPNVD ---
OB - PN: Subj Subjective Date/time seen: 05/02/21 08:50 Patient comments: pain well controlled, tolerating diet and other (Decreasing lochia.) baby status: doing well and nursing well [place] feeding status: exclusively breast feeding OB - PN: Obj Data Labs CBC & Chem 7: 05/01/21 03:24 04/30/21 05:51 Labs: Laboratory Results - last 24 hr 04/30/21 05:51 RPR Non-reactive OB - PN A/P Plan day: 2 Plan: discharge home and other Comments: Patient doing well. Follow up 4-6 weeks. Discharge instructions provided. Time Spent With Patient Time: Total time spent is greater than 50% in coordination of care (as documented) at patient's floor/unit and/or counseling patient: Time with patient: less than 15 minutes Review of Systems Review of Systems: All systems reviewed & are unremarkable except as noted in HPI and below Constitutional: Constitutional: Reports no additional constitutional complaints Cardiovascular: Cardiovascular: Denies dyspnea Respiratory: Respiratory: Denies dyspnea Gastrointestinal: Gastrointestinal: Reports no additional gastrointestinal complaints and Denies abdominal pain Genitourinary: Genitourinary: Reports no additional female genitourinary complaints Exam Psych: Affect: normal affect Other: Abd: fundus firm below umbilicus, nontender Perineum: healing Ext: nontender
[2021-05-03 11:24] VITALS: BP 141/66; PULSE 68; RESP 20; TEMP 36.4; O2SAT 100
--- NOTE | 2021-05-29 09:01 | PM.OBDSVD ---
DS: Admitting Diagnosis Discharge Date 05/02/21 Admitting Diagnosis Pre-eclampsia without severe features. 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 Pitocin was initiated and she had AROM. Blood sugars were monitored during labor. She also received IV antibiotics for GBS prophylaxis. She had an uncomplicated vaginal delivery. she did well. No signs or symptoms of severe pre-eclampsia during her admission. Blood sugars monitored fasting after delivery and with in normal. She was discharged to home on day 2. She had adequate pain control, tolerating regular diet, and ambulating well. Baby was doing well. Discharge precautions discussed. OB Procedures : NST and PIH Mgmt OB Procedures Intrapartum: Spontaneous Vag Delivery and GBS prophylaxis OB Procedures: : None Peripartum Data Delivery Method: Natural Vaginal Laceration Description: Perineal - 2nd Degree Procedures: Induction of labor. Vaginal delivery. complications: none Time Spent with Patient Time attestation: Total time spent providing and/or coordinating discharge services: Exam Const: General: cooperative Orientation/consciousness: oriented to person, oriented to place and oriented to time HENMT: General nose exam: Normal external nose present Eyes: General: appearance normal, both eyes and all related structures Resp: Effort & Inspection: normal respiratory effort GI: Inspection: normal to inspection Other: fundus below umbilicus : Other: perineum healing Skin: General skin exam: normal color Neuro: General: oriented to person, oriented to place and oriented to time Extrem: General: normal to inspection and no calf tenderness Psych: Appearance: grossly normal Mental Status: mental status grossly normal DS: Data Data Completed and Pending Completed studies during hospitalization: Pending at discharge 04/30/21 16:44 Surgical [PTH] Routine Discharge Plan Discharge Attending physician on discharge: Felix Arellano Consulting providers: Bailey Delaney Discharging Clinician: Felix Arellano Anticipated Discharge Date/Time: 05/02/21 08:51 Patient Disposition: Home, Self-Care Activity: may shower and pelvic rest Diet: regular Discharge Instructions: Pelvic rest for 4-6 weeks. May take over the counter Ibuprofen or Tylenol for pain. Call if saturating more than a pad an hour, leg redness, pain and swelling, temperature>100.4. No strenuous activity. Take daily PNV. Education: Mom and Baby Guide Given to: Mother Follow-Up: Call your delivering provider's office for an appointment to be seen in: 2 weeks Mom and baby should come to the [facility] for the follow-up appointment. Appointment Date/Time: May 03, 2021 at 11:00 am What to expect at your follow-up visit: Physical Assessment Call [phone] if you are unable to keep your appointment time. BREAST CARE: * Wear a snug supportive bra. * For engorgement discomfort: Breast Feeding: * Apply warm moist washcloths * Express milk as needed to relieve engorgement * Wear loose clothing Bottle Feeding: * May apply ice packs * For sore nipples: * Identify correct latch-on * Apply warm moist washcloths before
== END 2021-05-02 11:41 | disposition home or self-care (01) | DRG 807 ==
LOC: ANHLDR 06:15 → ANHOB2 20:04
PROVIDERS: Admitting Provider Obstetrics & Gynecology; Visit Provider Obstetrics & Gynecology
DX: O14.04 Mild to moderate pre-eclampsia, complicating childbirth (principal); Z37.0 Single live birth; Z3A.37 37 weeks gestation of pregnancy; O70.1 Second degree perineal laceration during delivery; O99.824 Streptococcus B carrier state complicating childbirth; O24.424 Gestational diabetes mellitus in childbirth, insulin controlled; O43.193 Other malformation of placenta, third trimester
CPT/HCPCS: 36415; 80053; 82948; 84550; 85014; 85018; 85025; 86592; 86850; 86900; 86901; 88307; A9270; J0290; J2590; J2795; J7120

== ENCOUNTER 2021-05-08 09:17 | Outpatient (CLI) | payer OTHER, SELFPAY ==
[2021-05-08 09:45] VITALS: BP 135/87; PULSE 80
[2021-05-08 09:51] LABS: Basophils Absolute Auto 0.1 K/mm3 (0.0-0.1); Eosinophils Absolute Auto 0.4 K/mm3 (0-0.3); Eosinophils Percent Auto 7.6 % (0-4.4); Hemoglobin 12.5 g/dL (12.0-15.0); Immature Granulocyte Absolute 0.03 K/mm3 (0.00-0.031); Immature Granulocyte Percent A 0.6 % (0-0.5); Lymphocytes Absolute Auto 1.64 K/mm3 (0.9-3.2); Lymphocytes Percent Auto 31.2 % (18.3-44.2); Mean Corpuscular HGB Conc 30.5 g/dl (32-36); Mean Corpuscular Hemoglobin 27.3 pg (26-34); Mean Corpuscular Volume 89.5 fl (80-100); Mean Platelet Volume 9.2 fl (7.4-10.4); Monocytes Absolute Auto 0.5 K/mm3 (0.1-0.6); Monocytes Percent Auto 10.3 % (2.6-8.5); Neutrophils Absolute Auto 2.6 K/mm3 (1.3-6.7); Neutrophils Percent Auto 49.3 % (45.5-73.1); Platelet Count Result 532 k/mm3 (150-375); Red Blood Count 4.58 M/mm3 (4.2-5.4); Red Cell Distribution Width 14.1 % (11.5-14.5); White Blood Count 5.3 K/mm3 (4.5-10.0)
[2021-05-08 10:01] VITALS: BP 121/70; PULSE 84
[2021-05-08 10:02] LABS: Alanine Aminotransferase 20 U/L (4-35); Alkaline Phosphatase 131 U/L (38-126); Anion Gap 5 mmol/L (8-16); Aspartate Amino Transferase 22 U/L (14-36); Bilirubin,Total 0.2 mg/dL (0.2-1.3); Blood Urea Nitrogen 19 mg/dL (7-17); Calcium 9.1 mg/dL (8.4-10.2); Carbon Dioxide 24 mmol/L (22-30); Chloride 110 mmol/L (98-107); Estimated Glomerular Filt Rate > 60; Glucose 105 mg/dL (65-110); Potassium 3.9 mmol/L (3.4-5.0); Sodium 139 mmol/L (137-145); Uric Acid 6.6 mg/dL (2.5-7.5)
[2021-05-08 10:15] VITALS: BP 118/70; PULSE 81
[2021-05-08 10:30] VITALS: BP 118/71; PULSE 72
[2021-05-08 10:45] VITALS: BP 117/69; PULSE 64
== END 2021-05-08 10:55 | disposition home or self-care (01) ==
LOC: ANHOBOP 09:21 → ANHOBPP 09:22
PROVIDERS: Visit Provider Obstetrics & Gynecology
DX: O13.9 Gestational [pregnancy-induced] hypertension without significant proteinuria, unspecified trimester (principal); Z3A.00 Weeks of gestation of pregnancy not specified
CPT/HCPCS: 36415; 80053; 84550; 85025; 99199